=== PATIENT | male | born 1965 | race Caucasian/White ===

== ENCOUNTER 2019-09-02 06:17 | Day surgery (SDC) | payer OTHER ==
[2019-08-23 16:45] VITALS: BMI 32.5
[2019-09-02] MEDS ORDERED: BUPIVACAINE HCL/PF 0.5% (5MG/ML) 10 ML VIAL ONE (07:03)
[2019-09-02] MEDS ORDERED: BUPIVACAINE HCL 0.25% 125 MG/50 ML VIAL ONE (07:06)
[2019-09-02] MEDS ORDERED: PROPOFOL 20 ML ONE ×3 (07:16→07:55)
[2019-09-02] MEDS ORDERED: SUCCINYLCHOLINE CHLORIDE 200 MG/10 ML SYRINGE ONE (07:16)
[2019-09-02] MEDS ORDERED: SODIUM CHLORIDE 0.9% P/F 10 ML VIAL IJ ONE (07:17)
[2019-09-02] MEDS ORDERED: LIDOCAINE HCL/PF 2% SDV 5ML VIAL ONE (07:17)
[2019-09-02] MEDS ORDERED: MIDAZOLAM HCL 2 MG/2 ML SINGLE DOSE VIAL ONE (07:17)
[2019-09-02] MEDS ORDERED: ONDANSETRON 4 MG/2 ML VIAL ONE ×2 (07:17→08:54)
[2019-09-02] MEDS ORDERED: DEXAMETHASONE SOD PHOSPHATE 4 MG/1 ML VIAL ONE (07:17)
[2019-09-02] MEDS ORDERED: KETOROLAC TROMETHAMINE 30 MG/1 ML VIAL ONE (07:17)
[2019-09-02] MEDS ORDERED: ceFAZolin SODIUM 1 GM VIAL ONE (07:17)
[2019-09-02] MEDS ORDERED: EPINEPHrine 1:1,000 1 MG/1 ML - 30ML VIAL (INJECTION) ONE (07:25)
[2019-09-02] MEDS ORDERED: ceFAZolin SODIUM 1 GM VIAL IVPB ONE (07:57)
[2019-09-02] MEDS ORDERED: BUPIVACAINE HCL/PF 0.25% (2.5MG/ML) 10 ML VIAL IJ ONE (08:27)
[2019-09-02] MEDS: ONDANSETRON 4 MG/2 ML VIAL IVPUSH PRN ×2 (08:55→09:00)
[2019-09-02] MEDS ORDERED: oxyCODONE HCL 5 MG TABLET PO PRN ×2 (09:05)
[2019-09-02] MEDS ORDERED: LACTATED RINGERS SOLUTION 1,000 ML IV SCH (09:15)
[2019-09-02 10:22] VITALS: PULSE 65
[2019-09-02 11:32] VITALS: BP 128/67; TEMP 97.9
--- NOTE | 2019-09-02 13:30 | OP ---
DATE OF OPERATION: 09/02/2019 Done at [facility] SURGEON: Santos Ruiz MD [employer]: JOSH Decker PREOPERATIVE DIAGNOSES: 1. Right knee medial and lateral meniscal tear. 2. Right knee cartilage injury. 3. Right knee synovitis. POSTOPERATIVE DIAGNOSES: 1. Right knee medial and lateral meniscal tear. 2. Right knee cartilage injury. 3. Right knee synovitis. PROCEDURE: 1. Right knee arthroscopy with partial meniscectomy medial and lateral meniscus, CPT code 41624. 2. Right knee arthroscopy with chondroplasty and abrasion-plasty, CPT code 06604. 3. Right knee arthroscopy with synovectomy, CPT code 15312. FINDINGS: 1. Medial meniscus [id number] horn tear central 1/3. 2. Lateral meniscus central body tear. 3. Synovitis patellofemoral medial and lateral notch area. 4. Anterior grade 2-3 cartilage injury medial femoral condyle grade 4 flap. 5. ACL and PCL intact. 6. Diffuse grade 1-2 changes lateral joint line. 7. Central grade 2 cartilage injury patella, grade 2-4 changes anterior portion patellofemoral trochlea. PROCEDURE: Informed consent was obtained. The patient came to the operating room, where the lower extremity was prepped and draped in a sterile fashion. A tourniquet was placed on the upper thigh, but not inflated. Using standard arthroscopic technique, a lateral incision and portal was made to allow for introduction of the camera into the suprapatellar bursa. This was then taken to the medial joint line, where under direct visualization, a medial incision and portal was made. Excessive synovium noted in the medial, lateral and patellofemoral and notch area was removed by an upbiter, shaver and Bovie cautery. This was found to bring in inflammatory tissue into the joint surface, a source of pain and dysfunction. Probing of the medial and lateral meniscus found tears, as described in the findings. These were removed with the upbiter and shaver and taken back to a stable rim. Grade 2 to 3 degenerative changes were treated with a chondroplasty, removing all flaking surfaces with low-setting Bovie along the periphery to prevent further flaking. Grade 4 changes, as noted, were treated with an abrasoplasty, creating a bleeding surface at the bone/cartilage interface. Aggressive debridement with shaver/michelle created bleeding surface. Micro fracture also done when indicated in findings. All areas of the knee were once again reexamined. The knee was then drained and a single suture was placed in all portals. A sterile dressing was placed and the patient was transferred to the recovery room without complication. The PA listed above was present and assisted at surgery. Their presence was absolutely medically necessary for the completion of the procedure. They helped hold the arthroscopy, pass instruments (and implants when indicated) and the procedure could not have been completed without their assistance. SANTOS RUIZ M.D. [id number]
== END 2019-09-02 10:56 | disposition home or self-care (01) ==
LOC: FASU 06:17
PROVIDERS: ATTEND Orthopaedic Surgery
PROC: 0SBC4ZZ Excision of Right Knee Joint, Percutaneous Endoscopic Approach (ICD-10-PCS; 2019-09-02)
PROC: 0SBC4ZZ Excision of Right Knee Joint, Percutaneous Endoscopic Approach (ICD-10-PCS; 2019-09-02)
PROC: 0SBC4ZZ Excision of Right Knee Joint, Percutaneous Endoscopic Approach (ICD-10-PCS; principal; 2019-09-02 07:30)
DX: S83.241A Other tear of medial meniscus, current injury, right knee, initial encounter (principal); S83.281A Other tear of lateral meniscus, current injury, right knee, initial encounter; S83.8X1A Sprain of other specified parts of right knee, initial encounter; M65.861 Other synovitis and tenosynovitis, right lower leg; X58.XXXA Exposure to other specified factors, initial encounter; Y93.9 Activity, unspecified; Y92.9 Unspecified place or not applicable
CPT/HCPCS: 94760

== ENCOUNTER 2021-02-25 18:50 | Emergency (ER) | payer OTHER ==
[2021-02-25 19:02] VITALS: BP 154/94; PULSE 88; TEMP 98.2; BMI 26.6
[2021-02-25] MEDS ORDERED: KETOROLAC TROMETHAMINE 60 MG/2 ML VIAL IM ONE (20:08)
[2021-02-25] MEDS ORDERED: KETOROLAC TROMETHAMINE 60 MG/2 ML VIAL ONE (20:09)
== END 2021-02-25 20:54 | disposition home or self-care (01) ==
LOC: FER 18:50
PROC: 3E0233Z Introduction of Anti-inflammatory into Muscle, Percutaneous Approach (ICD-10-PCS; principal; 2021-02-25)
DX: S43.401A Unspecified sprain of right shoulder joint, initial encounter (principal); X50.0XXA Overexertion from strenuous movement or load, initial encounter; Y92.511 Restaurant or cafe as the place of occurrence of the external cause
CPT/HCPCS: 73030-TC-RT-FY; 99284-25

== ENCOUNTER 2021-10-30 10:35 | Observation (INO) | payer OTHER ==
[2021-10-30] MEDS ORDERED: FAMOTIDINE 20 MG/50 ML IVPB 20 MG in PREMIX 50 IVPB ONE (10:45)
[2021-10-30] MEDS ORDERED: MAG HYDROX/AL HYDROX/SIMETH -MYLANTA- ORAL SUSPENSION PO ONE (10:45)
[2021-10-30] MEDS ORDERED: ACETAMINOPHEN 325 MG TABLET (FP) PO ONE (10:45)
[2021-10-30] MEDS ORDERED: MAG HYDROX/AL HYDROX/SIMETH 30 ML UNIT-DOSE CUP ONE (10:57)
[2021-10-30] MEDS ORDERED: ACETAMINOPHEN 325 MG TABLET (FP) ONE (10:57)
[2021-10-30] MEDS ORDERED: FAMOTIDINE 20 MG/50 ML IVPB 20 MG/50 ML MG IVPB ONE (10:57)
[2021-10-30 11:23] LABS: ALBUMIN 3.6 g/dl (3.4-5.0); BILIRUBIN,TOTAL 1.2 mg/dl (0.2-1); CALCIUM 8.8 mg/dl (8.5-10); CREATININE 0.6 mg/dl (0.55-1.3); TOT PROT 6.2 g/dl (6.4-8.2)
[2021-10-30 12:49] LABS: BASO % 0.3 % (0-2.0); EOS % 0.9 % (0-4.5); HEMATOCRIT 38.9 % (35.4-49); HEMOGLOBIN 13.5 GM/dL (11.7-16.9); LYMPH % 19.7 % (8-40); MCH 28.7 pg (25.7-33.7); MCHC 34.8 g/dl (32.0-35.9); MEAN CELL VOLUME 82.6 fl (80-96); MONO % 8.2 % (3.8-10.2); NEUT % 70.9 % (42.8-82.8); PLATELET COUNT 241 10^3/uL (134-434); RDW 13.2 % (11.9-15.9); WHITE BLOOD COUNT 8.6 K/mm3 (4.0-10.0)
[2021-10-30] MEDS ORDERED: ASPIRIN 81 MG CHEWABLE TABLETS ONE (15:23)
[2021-10-30 18:12] VITALS: BMI 32.8
[2021-10-30] MEDS ORDERED: ATORVASTATIN CA 20 MG TABLET (FP) PO SCH (22:00)
[2021-10-31] MEDS: FAMOTIDINE 10 MG TABLET PO SCH ×2 (07:08→09:58)
[2021-10-31] MEDS ORDERED: MAG HYDROX/AL HYDROX/SIMETH 30 ML UNIT-DOSE CUP PO PRN (07:30)
[2021-10-31 09:23] LABS: CREATININE 0.7 mg/dl (0.55-1.3)
[2021-10-31] MEDS ORDERED: LOSARTAN POTASSIUM 50 MG TABLET PO SCH (10:00)
[2021-10-31] MEDS ORDERED: ASPIRIN COATED 81 MG TABLET.EC PO SCH (10:00)
[2021-10-31] MEDS ORDERED: NITROGLYCERIN SUBLINGUAL 1/200 0.3 MG BTL SL PRN (10:54)
[2021-10-31] MEDS ORDERED: ENOXAPARIN NA (PORCINE) 40 MG/0.4 ML DISP.SYRIN SQ SCH (11:15)
[2021-10-31 14:11] VITALS: BP 119/73; PULSE 83; TEMP 98.9
== END 2021-10-31 16:47 | disposition short-term general hospital (02) ==
LOC: FER 10:35 → FM/S 15:26
PROVIDERS: ADMIT Internal Medicine; ATTEND Nurse Practitioner Acute Care
PROC: 3E023GC Introduction of Other Therapeutic Substance into Muscle, Percutaneous Approach (ICD-10-PCS; principal; 2021-10-30)
DX: M25.512 Pain in left shoulder (principal); R07.9 Chest pain, unspecified; I10 Essential (primary) hypertension; E78.5 Hyperlipidemia, unspecified; E66.9 Obesity, unspecified; Z68.32 Body mass index [BMI] 32.0-32.9, adult; E78.01 Familial hypercholesterolemia; Z82.49 Family history of ischemic heart disease and other diseases of the circulatory system
CPT/HCPCS: 36415; 71046-TC-FY; 80048; 80053; 80061; 83735; 84484; 85025; 93005; 93306-TC; 96372; 99285-25; C9803-CS; G0378; U0003; U0005